=== PATIENT | male | born 1995 | race Caucasian/White ===

== ENCOUNTER 2016-08-09 09:15 | Emergency (ER) | payer MEDICAID ==
[~2016-08-09] VITALS: Ht 177.8 cm; Wt 90.7 kg
[2016-08-09] MEDS ORDERED: SODIUM CHLORIDE 0.9% 1,000 ML IVB ONE (09:38)
[2016-08-09 10:23] LABS: Basophils # (auto) 0 uL; Basophils % (auto) 0.2 % (0.0-2.0); Eosinophils # (auto) 0 uL; Hematocrit 46.5 % (41.0-53.0); Hemoglobin 15.7 g/dL (13.5-17.5); Lymphocytes # (auto) 0.8 uL; Lymphocytes % (auto) 7.7 % (10.0-50.0); Mean Corpuscular Hemoglobin 31.1 pg (28.0-32.0); Mean Corpuscular Hgb Conc. 33.8 g/dL (32.0-36.0); Mean Corpuscular Volume 92.2 fL (80.0-100.0); Mean Platelet Volume 8.5 fL (7.4-10.4); Monocytes # (auto) 0.4 uL; Monocytes % (auto) 4.3 % (0.0-12.0); Neutrophils # (auto) 9.1 uL; Neutrophils % (auto) 87.8 % (37.0-80.0); Platelet Count (auto) 263 10^3/uL (140-450); White Blood Cell 10.4 10^3/uL (4.4-10.8)
[2016-08-09 10:47] LABS: Albumin 4.5 g/dL (3.4-5.0); Calcium 8.4 mg/dL (8.5-10.1); Potassium 3.8 mmol/L (3.5-5.1)
[2016-08-09 10:49] LABS: BUN/Creatinine Ratio 11.7
[2016-08-09 10:51] LABS: Bilirubin, Total 0.4 mg/dL (0.2-1.0); Total Protein 7.7 g/dL (6.4-8.2)
[2016-08-09 12:10] VITALS: BP 117/68
== END 2016-08-09 14:01 | disposition home or self-care (01) ==
LOC: EDBD 09:15 → ER 09:24
DX: G40.909 Epilepsy, unspecified, not intractable, without status epilepticus (principal); F10.239 Alcohol dependence with withdrawal, unspecified; Y90.8 Blood alcohol level of 240 mg/100 ml or more; F17.210 Nicotine dependence, cigarettes, uncomplicated
CPT/HCPCS: 36415; 51702; 80053; 80307; 80320; 82962; 85025; 94761; 96360; 99284; J7030

== ENCOUNTER 2023-12-24 08:40 | Emergency (ER) | payer MEDICAID ==
[~2023-12-24] VITALS: Ht 177.8 cm; Wt 80.0 kg
[2023-12-24 09:35] VITALS: BP 115/70; PULSE 75; RESP 18; TEMP 98.4; O2SAT 97
[2023-12-24] MEDS: KETOROLAC TROMETH 30 MG/ML 1ML VIAL IM ONE (10:17)
== END 2023-12-24 10:28 | disposition home or self-care (01) ==
LOC: ER 08:40
DX: L02.31 Cutaneous abscess of buttock (principal); F17.210 Nicotine dependence, cigarettes, uncomplicated
CPT/HCPCS: 10060; 96372; 99283; J1885

== ENCOUNTER 2023-12-27 10:18 | Emergency (ER) | payer MEDICAID ==
[~2023-12-27] VITALS: Ht 177.8 cm; Wt 80.9 kg
[2023-12-27 11:59] VITALS: BP 103/61; PULSE 68; RESP 17; TEMP 97.8; O2SAT 98
[2023-12-27] MEDS ORDERED: IBUP-1456 PO (12:00)
== END 2023-12-27 12:03 | disposition home or self-care (01) ==
LOC: ER 10:18
DX: L02.31 Cutaneous abscess of buttock (principal); F17.210 Nicotine dependence, cigarettes, uncomplicated; Z48.00 Encounter for change or removal of nonsurgical wound dressing

== ENCOUNTER 2024-01-28 17:23 | Emergency (ER) | payer MEDICAID ==
[~2024-01-28] VITALS: Ht 177.8 cm; Wt 74.6 kg
[~2024-01-28 17:23] MED LIST: IBUP-1456 PO
[2024-01-28 18:34] VITALS: BP 126/80; TEMP 99.8
[2024-01-28 18:37] VITALS: PULSE 73; RESP 16; O2SAT 96
[2024-01-28] MEDS ORDERED: DOXY100C4 PO (18:39)
== END 2024-01-28 18:52 | disposition home or self-care (01) ==
LOC: ER 17:23
DX: L73.1 Pseudofolliculitis barbae (principal); L08.89 Other specified local infections of the skin and subcutaneous tissue; F17.210 Nicotine dependence, cigarettes, uncomplicated; Z79.1 Long term (current) use of non-steroidal anti-inflammatories (NSAID); Z79.899 Other long term (current) drug therapy